=== PATIENT | male | born 1960 | race Hispanic/Latino ===

== ENCOUNTER → 2024-12-29 | Outpatient (CLI) | payer OTHER, MEDICARE ==
--- NOTE | 2024-12-29 16:59 | HMCIMG ---
CHEST 2VWS HISTORY: Interstitial lung disease COMPARISON: None FINDINGS: Frontal and lateral projections of the chest were obtained. There are prominent interstitial markings with possible superimposed infiltrates. The heart is borderline enlarged. Aortic calcifications are seen. Degenerative changes are seen of the thoracolumbar spine. IMPRESSION: 1. There are prominent interstitial markings.
== END | disposition home or self-care (01) ==
LOC: RAH 16:01
PROVIDERS: ATTEND Internal Medicine
DX: J84.9 Interstitial pulmonary disease, unspecified (principal); I70.0 Atherosclerosis of aorta; M47.815 Spondylosis without myelopathy or radiculopathy, thoracolumbar region
CPT/HCPCS: 71046

== ENCOUNTER 2025-01-31 10:56 | Emergency (ER) | payer OTHER, MEDICARE ==
[~2025-01-31] VITALS: Ht 175.3 cm; Wt 89.8 kg
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
[2025-01-31] MEDS ORDERED: acetaMINOPHEN 500 MG TABLET PO ONE (11:30)
--- NOTE | 2025-01-31 12:06 | HMCIMG ---
SHOULDER COMP 2+VWS LT INDICATION: Shoulder pain status post fall TECHNIQUE: SHOULDER COMP 2+VWS LT. FINDINGS AND IMPRESSION: No displaced fractures identified. 1 cm widening of the AC joint which may may related to ligamentous injury. Correlate clinically. There is mild soft tissue swelling No radiopaque foreign body is identified.
--- NOTE | 2025-01-31 12:07 | HMCIMG ---
HIP UNILAT 2-3VW LEFT INDICATION: Hip pain status post fall TECHNIQUE: HIP UNILAT 2-3VW LEFT. FINDINGS AND IMPRESSION: No displaced fracture or dislocation is seen. Correlate clinically. There is no joint effusion or soft tissue swelling. No radiopaque foreign body is identified.
--- NOTE | 2025-01-31 12:10 | HMCIMG ---
CT CERVICAL SPINE W/O CONTRAST HISTORY: Posterior cervical pain status post fall TECHNIQUE: CT CERVICAL SPINE W/O CONTRAST. Sagittal and coronal images were produced. CT was performed with one or more of the following dose reduction techniques: Automated exposure control, adjustment of the mA and/or kV according to the patient's size, or use of the iterative reconstruction technique. FINDINGS: Evaluation of the cord and discs is limited with CT. No evidence of acute displaced fracture or dislocation. The lateral masses of C1 align with C2. No prevertebral soft tissue swelling. Nonspecific straightening of curvature likely positional. Mild degenerative changes are seen Soft tissues of the neck are grossly within normal limits. This study cannot exclude ligamentous injury. IMPRESSION: No evidence of displaced cervical spine fracture or dislocation. Correlate clinically. Nonspecific straightening of curvature likely positional. Mild degenerative changes are seen
--- NOTE | 2025-01-31 12:11 | HMCIMG ---
CT HEAD/BRAIN W/O CONTRAST INDICATION: Occipital pain dizziness status post fall TECHNIQUE: CT HEAD/BRAIN W/O CONTRAST. CT was performed with one or more of the following dose reduction techniques: Automated exposure control, adjustment of the mA and/or kV according to the patient's size, or use of the iterative reconstruction technique. Comparison: None FINDINGS: Cerebral atrophy seen. Nonspecific periventricular and subcortical white matters changes are noted likely representing small vessel ischemic changes. No midline shift or herniation. No extra axial collection. No acute intracranial bleed. The visualized paranasal sinuses and mastoid air cells are normally aerated. IMPRESSION: Diffuse atrophy. No acute intracranial bleed is seen. Nonspecific white matter changes
[2025-01-31] MEDS ORDERED: IBUP-2077 PO (12:31)
[2025-01-31] MEDS ORDERED: CYCL-309 PO (12:31)
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
[2025-01-31] MEDS: HYDROcodone/APAP 5/325 1 TAB TABLET PO ONE (12:50)
[2025-01-31] MEDS: ketOROlac 60 MG VIAL (30MG/ML) IM ONE (12:50)
[2025-01-31 13:21] VITALS: BP 130/62; PULSE 88; RESP 16; TEMP 98; O2SAT 95
== END 2025-01-31 13:26 | disposition home or self-care (01) ==
LOC: EDH 10:56
DX: S16.1XXA Strain of muscle, fascia and tendon at neck level, initial encounter (principal); S00.03XA Contusion of scalp, initial encounter; S40.012A Contusion of left shoulder, initial encounter; S70.02XA Contusion of left hip, initial encounter; E11.9 Type 2 diabetes mellitus without complications; E78.00 Pure hypercholesterolemia, unspecified; I10 Essential (primary) hypertension; W18.39XA Other fall on same level, initial encounter; Y93.89 Activity, other specified; Y92.89 Other specified places as the place of occurrence of the external cause; Y99.8 Other external cause status
CPT/HCPCS: 99284; 70450; 96374; 73502; 73030; 72125; J1885

== ENCOUNTER 2025-06-30 10:33 | Emergency (ER) | payer OTHER, MEDICARE ==
[~2025-06-30] VITALS: Ht 175.3 cm; Wt 88.0 kg
[~2025-06-30 10:33] MED LIST: CYCL-309 PO; IBUP-2077 PO
[2025-06-30 10:34] VITALS: BP 159/76; PULSE 74; RESP 16; TEMP 97.9
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
== END 2025-06-30 12:59 | disposition home or self-care (01) ==
LOC: EDH 10:33
DX: S16.1XXA Strain of muscle, fascia and tendon at neck level, initial encounter (principal); E11.9 Type 2 diabetes mellitus without complications; E78.00 Pure hypercholesterolemia, unspecified; I10 Essential (primary) hypertension; Z79.899 Other long term (current) drug therapy; V49.40XA Driver injured in collision with unspecified motor vehicles in traffic accident, initial encounter; Y93.89 Activity, other specified; Y92.89 Other specified places as the place of occurrence of the external cause; Y99.8 Other external cause status
CPT/HCPCS: 70450; 72125; 99284